=== PATIENT | male | born 1950 | race Caucasian/White ===

== ENCOUNTER → 2016-06-20 | Outpatient (CLI) | payer MEDICARE, BC ==
[~2016-06-20] MED LIST: ALBUTEROL0.83 MG/ML; CLARITIN-D 241 EACH PO; CLARITIN-D1 TAB 24 H PO; CLARITIN-D1 TAB 241; GABAPENTIN300 M2 PO; LEVAQUIN PO; LEVOFLOXACIN500 MG PO; LEVOTHYROXINE75 MCG PO; LORTAB 10-3251 EACH PO; LORTAB 10/500 T1 TAB PO; MORPHINE SULFAT20 MG PO; NASONEX17 GM; PHENERGAN W/CO120 ML PO; PREDNISONE10 MG PO; PROVENTIL0.83 MG/ML IH; ROBAXIN 750750 MG PO; ZITHROMAX PO; [UNRECOGNIZED DRUG - OTHER] PO
--- NOTE | ~2016-06-20 | CR59 ---
[facility] A Service of [facility] & [facility] RADIOLOGY TEXT RESULTS PATIENT: MARITZA MATTA LOCATION: [facility] : 46 UNIT #: [id number] AGE: [address]: Paulino Soria MD SEX: M ORDER DR: [id number] [address] [address] [id number] O MR#: [id number] Acc #: [id number] NAME: MARITZA MATTA : 1950 SEX: M STUDY DATE/TIME: 06/20/2016 10:47 UNIT: SRAD ROOM: STUDY DESCRIPTION: CR Cervical Spine 5 View W Fle Attending Physician: Paulino Soria M.D. Referring Physician: Paulino Soria M.D. Ordering Physician: Paulino Soria M.D. Primary Care Physician: Caden Ruiz M.D. MEDICAL IMAGING REPORT This report is preliminary unless electronic signature is present. EXAM Cervical spine series 06/20/2016 HISTORY Neck pain. Cervical dystonia. 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 AP, lateral views of the cervical spine were obtained with voluntary flexion/extension views obtained in lateral projection. FINDINGS There is a left-sided chest port in place with catheter extending through the left subclavian vein and terminating in the superior vena cava. There is what would appear to be a embolization coil in the soft tissues of the left neck. There are atherosclerotic arterial calcifications. Patient is missing multiple teeth. Scattered dental hardware. Carotid arterial calcifications. Lung apices clear. Cervical spine shows no fracture. Vertebral body heights normal. Mild to moderate disc space narrowing C3-C4, C4-C5, C5-C6, C6-C7. Multiple anterior osteophytes most pronounced C5-C6, C6-C7. Small posterior osteophytes suggested most conspicuously at C5-C6, C6-C7. There are facet degenerative changes. In the neutral position there is approximately 4 mm anterolisthesis of C3 on C4. Approximately 2 mm anterolisthesis C4 on C5 and approximately 1-2 mm anterolisthesis C5 on C6. With voluntary flexion, these alignment changes remain stable with no change in the extent of anterolisthesis at the C3 on C4, C4 on C5 and C5 on C6 levels. With voluntary extension the anterolisthesis of C3 on C4 approaches 5 mm. This may simply be a projectional artifact between the images. The anterolisthesis of C4 on C5 does appear to diminished with voluntary extension measuring about 1-1.5 mm. The mild anterolisthesis of C5 on C6 seen on the neutral and flexion views is not evident on the extension view. This constellation of findings would suggest some degree of ligamentous laxity at the C4-C5 and C5-C6 levels. [facility]. [facility] A Service of [facility] RADIOLOGY TEXT RESULTS PATIENT: MARITZA MATTA LOCATION: [facility] : 46 UNIT #: [id number] AGE: [address]: Paulino Soria MD SEX: M ORDER DR: The prevertebral soft tissues are unremarkable. Dictated by... Armando Cameron M.D. THIS IS AN ELECTRONICALLY VERIFIED REPORT Armando Cameron M.D. at 06/21/2016 6:04 PM Chanda TD: 06/20/2016 18:28 JOB #: [id number] MEDICAL IMAGING REPORT Page 1 of 1
== END | disposition home or self-care (01) ==
LOC: SRAD 10:27
DX: G24.3 Spasmodic torticollis (principal); M54.2 Cervicalgia
CPT/HCPCS: 72052